=== PATIENT | male | born 1980 | race Caucasian/White ===

== ENCOUNTER 2018-05-28 19:57 | Emergency (ER) | payer OTHER, SELFPAY ==
[2018-05-28 20:13] VITALS: BP 125/89; PULSE 65; RESP 16; O2SAT 100
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
[2018-05-28 20:30] VITALS: BP 125/86; PULSE 74; RESP 13; O2SAT 100
[2018-05-28 20:56] LABS: Add Manual Diff / Slide Review NO; Basophils Percent Auto 0.4 % (0-2); Eosinophils Percent Auto 0.3 % (2-4); Hemoglobin 16.2 g/dL (13.5-17.5); Lymphocytes Percent Auto 10.8 % (25-40); Mean Corpuscular HGB Conc 33.8 % (30-36); Mean Corpuscular Hemoglobin 29.3 PG (26-34); Mean Corpuscular Volume 86.7 fL (80-100); Monocytes Percent Auto 5.9 % (3-14); Neutrophils Absolute Auto 10000 /uL (3000-5900); Neutrophils Percent Auto 82.6 % (50-75); Platelet Count 267 X10^3/uL (150-400); Red Blood Cell Count 5.53 X10^6/uL (4.5-5.9); Red Cell Distribution Width 13.6 % (11.6-14.8); White Blood Cell Count 12.2 X10^3/uL (4.5-11.0)
[2018-05-28 21:13] VITALS: BP 113/85; PULSE 81; RESP 10; O2SAT 100
[2018-05-28] MEDS: TET,DIPH,PERTUSS(ACELL),VAC/PF 0.5 ML SYRINGE IM (21:18)
[2018-05-28 21:22] LABS: Prothrombin Time 10.4 SECONDS (10.1-12.7)
[2018-05-28 21:25] LABS: PTT Partial Thromboplastin Tim 27 SECONDS (26.4-36.2)
[2018-05-28 21:45] LABS: Alanine Aminotransferase 44 IU/L (21-72); Albumin 4.6 g/dL (3.5-5.0); Albumin Globulin Ratio 1.6 (1.0-2.8); Alkaline Phosphatase 54 U/L (38-126); Aspartate Aminotransferase 33 IU/L (17-59); BUN Creatinine Ratio 17.5 (6-22); Bilirubin Total 0.5 mg/dL (0.2-1.3); Blood Urea Nitrogen 14 mg/dL (9-20); Calcium 9.4 mg/dL (8.4-10.2); Carbon Dioxide 29 mmol/L (22-32); Chloride 103 mmol/L (98-107); Creatine Kinase 109 U/L (55-170); Estimated Glomerular Filt Rate > 60.0 mL/min (>60); Ethanol (ETOH) < 10 mg/dL; Globulin 2.8 g/dL (1.7-4.1); Glucose 108 mg/dL (70-100); Lipase 107 U/L (23-300); Potassium 4.1 mmol/L (3.4-5.1); Sodium 142 mmol/L (137-145); Total Protein 7.4 g/dL (6.3-8.2)
[2018-05-28 21:53] LABS: HEMOLYSIS 51 (0-50)
[2018-05-28 22:00] VITALS: BP 113/85; PULSE 78; RESP 16; O2SAT 100
[2018-05-28 22:00] LABS: CKMB % Relative Index 0.9 % (1.5-5.0); Creatine Kinase MB 0.97 ng/mL (<2.37)
[2018-05-28 22:03] LABS: Troponin I < 0.012 ng/mL (0.01-0.034)
[2018-05-28 22:44] LABS: Urine Amphetamines Negative (Negative); Urine Barbiturates Negative (Negative); Urine Benzodiazepines Negative (Negative); Urine Cocaine Negative (Negative); Urine MDMA Negative (Negative); Urine Methadone Negative (Negative); Urine Methamphetamines Negative (Negative); Urine Morphine/Opi cutoff 2000 Negative (Negative); Urine Oxycodone Negative (Negative); Urine Phencyclidine Negative (Negative); Urine Tetrahydrocannabinol Positive (Negative); Urine Tricyclic Antidepressant Negative (Negative)
[2018-05-28] MEDS: ONDANSETRON 4 MG ODT PREPACK 1 BOTTLE MISC (23:16)
[2018-05-28 23:21] VITALS: BP 116/80; PULSE 80; RESP 15; O2SAT 99
== END 2018-05-28 23:22 | disposition home or self-care (01) ==
PROVIDERS: Emergency Provider Emergency Medicine
DX: S02.2XXA Fracture of nasal bones, initial encounter for closed fracture (principal); S06.0X9A Concussion with loss of consciousness of unspecified duration, initial encounter; V18.0XXA Pedal cycle driver injured in noncollision transport accident in nontraffic accident, initial encounter
CPT/HCPCS: 36415; 36591; 70450; 70486; 71045; 72125; 80053; 80305; 80320; 81003; 82550; 82553; 82962; 83690; 84484; 85025; 85610; 85730; 86850; 86900; 86901; 90471; 93005; 93010; 99283; 99285; 90715